=== PATIENT | female | born 1980 | race Caucasian/White ===

== ENCOUNTER 2017-11-01 15:25 | Emergency (ER) | payer MEDICAID ==
[~2017-11-01] VITALS: Ht 175.3 cm; Wt 108.4 kg
[2017-11-01 15:35] VITALS: BP_SYST 137
[2017-11-01] MEDS ORDERED: NACL 0.9% 1,000 ML IV ONE ×2 (15:52→16:00)
[2017-11-01] MEDS ORDERED: ASPIRIN 81 MG TAB.CHEW PO ONE (16:15)
[2017-11-01 16:22] LABS: EOSINOPHILS # (AUTO) 0.4 K/uL (0.0-0.4)
[2017-11-01 16:30] LABS: BASOPHILS # (AUTO) 0.2 K/uL (0.0-0.2); BASOPHILS % (AUTO) 1.8 % (0.0-2.0); EOSINOPHILS % (AUTO) 3.2 % (0.0-4.0); HEMATOCRIT 38.9 % (36-48); HEMOGLOBIN 12.9 g/dL (12.0-16.0); LYMPHOCYTES # (AUTO) 1.6 K/uL (1.0-5.5); LYMPHOCYTES % (AUTO) 13.7 % (20.5-51.5); MEAN CORPUSCULAR HEMOGLOBIN 28 pg (27-31); MEAN CORPUSCULAR HGB CONC 33 % (32-36); MEAN CORPUSCULAR VOLUME 86 fL (79.0-98.0); MONOCYTES # (AUTO) 1.2 K/uL (0.0-1.0); NEUTROPHILS # (AUTO) 8.6 K/uL (1.8-7.7); NEUTROPHILS % (AUTO) 71.3 % (40.0-70.0); PLATELET COUNT (AUTO) 430 K/uL (130-430); RED BLOOD CELL COUNT(AUTO) 4.54 MIL/uL (4.2-6.2); RED CELL DISTRIBUTION WIDTH 12.9 % (9.0-15.0)
[2017-11-01 16:38] LABS: ANION GAP 11 (5-15); CALCIUM 9.4 mg/dL (8.4-11.0); CHLORIDE 100 mmol/L (98-107); CREATININE 0.97 mg/dL (0.55-1.30); GLUCOSE 121 mg/dL (70-99); POTASSIUM 4.1 mmol/L (3.5-5.1); SODIUM SERUM 134 mmol/L (136-145); UREA NITROGEN, BLOOD 15 mg/dL (8-21)
[2017-11-01 16:39] LABS: GFR AFRICAN AMERICAN 82 mL/min (>90)
[2017-11-01 16:46] LABS: ALANINE AMINOTRANSFERASE 85 U/L (12-78); ALBUMIN 3.2 g/dL (3.4-4.8); ASPARTATE AMINOTRANSFERASE 45 U/L (10-37); TOTAL BILIRUBIN 0.3 mg/dL (0.0-1.0)
[2017-11-01] MEDS ORDERED: KETOROLAC TROMETHAMINE 30 MG VIAL IVP ONE (17:00)
[2017-11-01] MEDS ORDERED: IOHEXOL 350 mgI/mL, 150 ML INFUS..BTL IV ONE (17:23)
[2017-11-01 17:24] LABS: BARBITURATE, URINE NEGATIVE (NEG <=200); URINE AMPHETAMINE POSITIVE (NEG <=500)
[2017-11-01 17:25] LABS: BENZODIAZEPINE, URINE NEGATIVE (NEG <=150); CANNABINOID, URINE NEGATIVE (NEG <=50); COCAINE, URINE NEGATIVE (NEG <=150); METHAMPHETAMINES SCREEN,URINE POSITIVE (NEG <=500); OPIATE, URINE POSITIVE (NEG <=100); PHENCYCLIDINE SCREEN,URINE NEGATIVE (NEG <=25); UR TRICYCLIC ANTIDEPRESSANTS NEGATIVE (NEG <=300); URINE METHADONE NEGATIVE (NEG <=200); URINE OXYCODONE SCREEN NEGATIVE (NEG <=100); URINE PROPOXYPHENE SCREEN NEGATIVE (NEG <=300)
[2017-11-01 18:30] VITALS: BP_SYST 128
== END 2017-11-01 18:30 | disposition home or self-care (01) ==
LOC: SED 15:25
DX: F15.10 Other stimulant abuse, uncomplicated (principal); E66.9 Obesity, unspecified; I10 Essential (primary) hypertension; Z68.35 Body mass index [BMI] 35.0-35.9, adult; Z88.1 Allergy status to other antibiotic agents; Z86.718 Personal history of other venous thrombosis and embolism
CPT/HCPCS: 36415; 71045; 71275; 80053; 80307; 84484; 85025; 85379; 93005; 93971; 96361; 96374; 99285; J1885; J7030; Q9967

== ENCOUNTER 2018-11-25 19:25 | Emergency (ER) | payer MEDICAID ==
[~2018-11-25] VITALS: Ht 175.3 cm; Wt 108.4 kg
[2018-11-25 19:27] VITALS: BP_SYST 127
[2018-11-25] MEDS ORDERED: MORPHINE 2 MG/ML INJ. SYRINGE IM ONE (21:30)
[2018-11-25] MEDS ORDERED: ONDANSETRON HCL 4 MG/2 ML VIAL IM ONE (21:30)
[2018-11-25] MEDS ORDERED: DIPH-TET-PERTUS Vaccine 0.5 ML VIAL (ADACEL) I.M. ONE (21:30)
[2018-11-25 22:25] VITALS: BP_SYST 127
== END 2018-11-25 22:25 | disposition home or self-care (01) ==
LOC: SED 19:25
DX: S02.2XXA Fracture of nasal bones, initial encounter for closed fracture (principal); S01.112A Laceration without foreign body of left eyelid and periocular area, initial encounter; M79.641 Pain in right hand; I10 Essential (primary) hypertension; Z88.1 Allergy status to other antibiotic agents; Y04.0XXA Assault by unarmed brawl or fight, initial encounter; Y93.89 Activity, other specified; Y92.89 Other specified places as the place of occurrence of the external cause; Y99.8 Other external cause status
CPT/HCPCS: 29125; 70486; 73130; 90471; 90715; 96372; 99284; J2270; J2405

== ENCOUNTER 2020-03-05 16:44 | Emergency (ER) | payer MEDICAID ==
[~2020-03-05] VITALS: Ht 175.3 cm; Wt 118.8 kg
[2020-03-05 16:44] VITALS: BP_SYST 190
--- NOTE | 2020-03-05 16:44 | NUR ---
BROUGHT IN BY [facility], PLACED IN BED #3 AND TRIAGED. REPORT GIVEN TO NATY
--- NOTE | 2020-03-05 16:45 | NUR ---
Pt bib EMS from home with c/o chest pain and SOB. Reports history of tachycardia and HTN. V/S stable, pt is afebrile. Currently resting in bed, will continue to monitor.
--- NOTE | 2020-03-05 17:00 | NUR ---
ER Dr. Pennington at bedside examining patient.
--- NOTE | 2020-03-05 17:10 | NUR ---
Radiology at bedside for CXR.
[2020-03-05] MEDS ORDERED: NACL 0.9% 1,000 ML IV ONE (17:15)
[2020-03-05] MEDS ORDERED: ASPIRIN 81 MG TAB.CHEW PO ONE (17:15)
[2020-03-05] MEDS ORDERED: NITROGLYCERIN 1 INCH (GM) OINT. TP ONE (17:30)
--- NOTE | 2020-03-05 17:30 | NUR ---
Lab at bedside for blood draw.
[2020-03-05 17:43] LABS: BASOPHILS # (AUTO) 0.1 K/uL (0.0-0.2); BASOPHILS % (AUTO) 0.9 % (0.0-2.0); EOSINOPHILS # (AUTO) 0.1 K/uL (0.0-0.4); EOSINOPHILS % (AUTO) 2.1 % (0.0-4.0); HEMATOCRIT 40.2 % (36-48); HEMOGLOBIN 13.6 g/dL (12.0-16.0); LYMPHOCYTES # (AUTO) 1.6 K/uL (1.0-5.5); LYMPHOCYTES % (AUTO) 23.1 % (20.5-51.5); MEAN CORPUSCULAR HEMOGLOBIN 31 pg (27-31); MEAN CORPUSCULAR HGB CONC 34 % (32-36); MEAN CORPUSCULAR VOLUME 92 fL (79.0-98.0); MONOCYTES # (AUTO) 0.7 K/uL (0.0-1.0); MONOCYTES % (AUTO) 10.7 % (1.7-9.3); NEUTROPHILS # (AUTO) 4.3 K/uL (1.8-7.7); NEUTROPHILS % (AUTO) 63.2 % (40.0-70.0); PLATELET COUNT (AUTO) 302 K/uL (130-430); RED BLOOD CELL COUNT(AUTO) 4.38 MIL/uL (4.2-6.2); WHITE BLOOD COUNT (AUTO) 6.8 K/uL (4.8-10.8)
[2020-03-05 18:09] LABS: ANION GAP 4 (5-15); CALCIUM 8.9 mg/dL (8.4-11.0); CHLORIDE 103 mmol/L (98-107); CREATININE 0.86 mg/dL (0.55-1.30); GLUCOSE 96 mg/dL (70-99); POTASSIUM 3.6 mmol/L (3.5-5.1); SODIUM SERUM 137 mmol/L (136-145); UREA NITROGEN, BLOOD 18 mg/dL (8-21)
[2020-03-05 18:17] LABS: ALANINE AMINOTRANSFERASE 41 U/L (12-78); ALBUMIN 3.5 g/dL (3.4-4.8); ASPARTATE AMINOTRANSFERASE 22 U/L (10-37); TOTAL BILIRUBIN 0.4 mg/dL (0.0-1.0)
[2020-03-05 18:28] LABS: GFR AFRICAN AMERICAN 94 mL/min (>90)
--- NOTE | 2020-03-05 19:04 | NUR ---
Care of patient endorsed to NRUY Bhardwaj. Pt currently resting in bed, no distress noted.
--- NOTE | 2020-03-05 20:05 | NUR ---
Patient cried and said "Need to leave now, my family emergency". Dr. Mercer notified.
--- NOTE | 2020-03-05 20:08 | NUR ---
Dr. Mercer spoke with patient at bedside.
[2020-03-05 20:10] VITALS: BP_SYST 120
--- NOTE | 2020-03-05 20:10 | NUR ---
Patient signed AMA.
== END 2020-03-05 20:10 | disposition left against medical advice (07) ==
LOC: SED 16:44
DX: R07.89 Other chest pain (principal); I10 Essential (primary) hypertension; Z86.718 Personal history of other venous thrombosis and embolism; Z86.19 Personal history of other infectious and parasitic diseases; Z88.1 Allergy status to other antibiotic agents
CPT/HCPCS: 36415; 71045; 80053; 83880; 84484; 85025; 85379; 93005; 96360; 99285; J7030

== ENCOUNTER 2021-02-11 09:06 | Day surgery (SDC) | payer MEDICAID, SELFPAY ==
[~2021-02-11] VITALS: Ht 171.4 cm; Wt 118.8 kg
[2021-02-11 10:24] LABS: HCG,QUAL RESULT NEGATIVE (NEGATIVE)
[2021-02-11 13:57] VITALS: BP_SYST 107
== END 2021-02-11 13:35 | disposition home or self-care (01) ==
LOC: SDS 09:06 → SMU 09:07 → SDS 13:35
PROVIDERS: ATTEND Internal Medicine
DX: R19.4 Change in bowel habit (principal); K63.5 Polyp of colon; K64.8 Other hemorrhoids; Z80.0 Family history of malignant neoplasm of digestive organs; Z79.899 Other long term (current) drug therapy; Z20.822 Contact with and (suspected) exposure to COVID-19
CPT/HCPCS: 36415; 45380; 45385; 84703; 87426; 88305; G0378